=== PATIENT | male | born 1975 | race Caucasian/White ===

== ENCOUNTER 2021-06-03 18:37 | Emergency (ER) | payer SELFPAY ==
[~2021-06-03] VITALS: Ht 170.2 cm; Wt 90.7 kg
--- NOTE | 2021-06-03 18:52 | NUR ---
Sonia guaman in [facility] - 06/03/21 at 1901 by ANGEL Called NO response
--- NOTE | 2021-06-03 19:12 | NUR ---
PT IS PLACED ON 5440 HOLD WRITTEN ON 06/03/21 @ 7870 BY [employer] OFFICER CHELY FOR DANGER TO SELF EVIDENCED BY WANTING TO KILL HIMSELF BY RUNNING INTO TRAFFIC.
--- NOTE | 2021-06-03 19:30 | NUR ---
PATIENT CONNECTED TO SALES REPRESENTATIVE ADDING MACHINES AND POX. PATIENT IS A/O X 4, RR EVEN AND UNLABORED, NO SIGNS OF SOB NOTED. PATIENT IS IN NO ACUTE DISTRESS. SITTER IS AT BEDSDIE. WILL CONTINUE TO MONITOR.
[2021-06-03 19:53] LABS: BASOPHILS # (AUTO) 0.1 K/uL (0.0-0.2); EOSINOPHILS % (AUTO) 7.8 % (0.0-6.0); HEMATOCRIT 46 % (39-51); HEMOGLOBIN 15.5 g/dL (13.5-17.5); MEAN CORPUSCULAR HGB CONC 34 g/dl (31.0-36.0); MEAN CORPUSCULAR VOLUME 90 fL (80-96); MONOCYTES # (AUTO) 0.4 K/uL (0.1-1.30); MONOCYTES % (AUTO) 5.9 % (2.0-12.0); NEUTROPHILS # (AUTO) 3.8 K/uL (1.8-8.9); NEUTROPHILS % (AUTO) 56.3 % (43.0-81.0); PLATELET COUNT (AUTO) 239 K/uL (150-450); RED BLOOD CELL COUNT(AUTO) 5.03 MIL/uL (4.5-6.0); WHITE BLOOD COUNT (AUTO) 6.8 K/uL (4.3-11.0)
[2021-06-03 20:10] LABS: ALANINE AMINOTRANSFERASE 216 U/L (12-78); ALBUMIN 3.6 g/dL (3.4-5.0); ALCOHOL, BLOOD < 3 mg/dL (0-0); ALKALINE PHOSPHATASE 79 U/L (46-116); ASPARTATE AMINOTRANSFERASE 141 U/L (15-37); BILIRUBIN,DIRECT 0.2 mg/dL (0.0-0.2); BILIRUBIN,TOTAL 0.5 mg/dL (0.2-1.0); CALCIUM, SERUM 9.2 mg/dL (8.5-10.1); CARBON DIOXIDE 27 mmol/L (21-32); CHLORIDE 105 mmol/L (98-107); CREATININE 0.8 mg/dL (0.6-1.3); GLUCOSE 98 mg/dL (74-106); POTASSIUM 4.2 mmol/L (3.5-5.1); SODIUM SERUM 141 mmol/L (136-145); TOTAL PROTEIN, SERUM 7.7 g/dL (6.4-8.2); UREA NITROGEN, BLOOD 6 mg/dL (7-18)
[2021-06-03 20:15] LABS: ACETAMINOPHEN < 2 ug/ml (10-30)
[2021-06-03 20:24] LABS: BILIRUBIN,URINE MODERATE (NEGATIVE); COLOR,URINE YELLOW (YELLOW); LEUKOCYTE ESTERASE ,URINE Negative (NEGATIVE); NITRITE, URINE Negative (NEGATIVE); PH,URINE 6.5 (5.0-8.0); PROTEIN,URINE Negative (NEGATIVE); UGLUCOSE Negative (NEGATIVE)
[2021-06-03 20:31] LABS: BACTERIA,URINE Rare /HPF (None Seen); RBC,URINE NONE SEEN /HPF (0-2); SQUAMOUS EPITHELIAL CELL,UR Few /HPF (None Seen); WBC,URINE NONE SEEN /HPF (0-3)
--- NOTE | 2021-06-03 23:32 | NUR ---
KIAN MEDEIROS BIOLOGICS SPECIALIST PAGED FOR EVAL.
--- NOTE | 2021-06-04 00:09 | NUR ---
KIAN CRISIS TEAM RETURNED CALL, ETA ONE HOUR.
--- NOTE | 2021-06-04 02:15 | NUR ---
CRISIS TEAM KIAN AT BEDSIDE
--- NOTE | 2021-06-04 02:54 | NUR ---
KIAN FROM CRISIS BROKE THE 5150 HOLD.
--- NOTE | 2021-06-04 03:31 | NUR ---
CLINICAL AND FACESHEET FAXED TO [facility] INTAKE FOR VOLUNTARY PSYCH ADMISSION.
--- NOTE | 2021-06-04 05:00 | NUR ---
PATIENT IN BED RESTING. PROVIDED WITH FLUIDS PO AND SNACKES. VSS. WILL CONTINUE TO MONITOR.
--- NOTE | 2021-06-04 05:37 | NUR ---
PT ACCEPTED TO [facility] GIVE REPORT AFTER 08:30 [phone] ACCEPTING MD AND ROOM NUMBER WILL BE PROVIDED UPON REPORT
--- NOTE | 2021-06-04 07:22 | NUR ---
ASSESSED PT ON BED ASLEEP EASILY AROUSABLE, NOT IN RESPIRATORY DISTRESS, V/S STABLE, KEPT RESTED AND COMFORTABLE. WILL CONTINUE TO MONITOR.
--- NOTE | 2021-06-04 08:31 | NUR ---
[facility] CALLED ETA 30 MINS PER DOUG
--- NOTE | 2021-06-04 08:53 | NUR ---
report given to ghislaine sigala from [facility].
--- NOTE | 2021-06-04 09:12 | NUR ---
REPORT GIVEN TO EMS FOR PT TRANSFER TO [facility].
--- NOTE | 2021-06-04 09:36 | NUR ---
IV removed. Catheter intact and site benign. Pressure and 4x4 applied to site. No bleeding noted.
[2021-06-04 09:57] VITALS: BP 127/79
== END 2021-06-04 09:58 ==
LOC: ER 19:20
DX: R45.851 Suicidal ideations (principal); F19.10 Other psychoactive substance abuse, uncomplicated; R94.31 Abnormal electrocardiogram [ECG] [EKG]; Z59.0 Homelessness; F32.9 Major depressive disorder, single episode, unspecified; Z20.822 Contact with and (suspected) exposure to COVID-19
CPT/HCPCS: 36415; 71045; 80048; 80076; 80143; 80307; 80320; 81001; 85025; 87426; 93005; 99285; C9803; G0480